=== PATIENT | male | born 1940 | race Caucasian/White ===

== ENCOUNTER 2017-05-24 06:25 | Inpatient (IN) | payer OTHER ==
[2017-05-23 13:56] VITALS: BMI 26.9
[2017-05-24] MEDS ORDERED: MIDAZOLAM HCL 2 MG/2 ML SINGLE DOSE VIAL ONE ×2 (08:01)
[2017-05-24] MEDS ORDERED: PROPOFOL 20 ML ONE (08:32)
[2017-05-24] MEDS ORDERED: DESFLURANE GAS 240 ML BOTTLE IH ONE (08:38)
[2017-05-24] MEDS ORDERED: ceFAZolin SODIUM 1 GM VIAL IVPB ONE (08:43)
[2017-05-24] MEDS ORDERED: oxyCODONE HCL 5 MG TABLET PO PRN ×2 (09:27→09:40)
[2017-05-24] MEDS ORDERED: PROMETHAZINE HCL 25 MG/1 ML VIAL IVPUSH PRN (09:40)
[2017-05-24] MEDS ORDERED: ONDANSETRON 4 MG/2 ML VIAL IVPUSH PRN (09:40)
[2017-05-24] MEDS ORDERED: LACTATED RINGERS SOLUTION 1,000 ML IV SCH (09:45)
[2017-05-24] MEDS: CEFAZOLIN 1 GM in DEXTROSE 5%-WATER - 50 ML IVPB SCH ×2 (10:00→17:04)
[2017-05-24] MEDS ORDERED: ACETAMINOPHEN INJECTION 100 ML IVPB ONE (10:13)
[2017-05-24] MEDS: ACETAMINOPHEN 1000 MG/100 ML VIAL (NON FORMULARY) IVPB ONE ×2 (10:19→17:48)
[2017-05-24 10:44] LABS: BASO % 0.5 % (0-2.0); EOS % 12.9 % (0-4.5); HEMATOCRIT 40.2 % (35.4-49); HEMOGLOBIN 13.2 GM/dL (11.7-16.9); LYMPH % 35.9 % (8-40); MCH 29.7 pg (25.7-33.7); MCHC 32.9 g/dl (32.0-35.9); MEAN CELL VOLUME 90.3 fl (80-96); MEAN PLT VOLUME 8.4 fl (7.5-11.1); NEUT % 43.7 % (42.8-82.8); PLATELET COUNT 204 K/MM3 (134-434); RBC 4.45 M/mm3 (4.00-5.60); RDW 15.8 % (11.9-15.9); WHITE BLOOD COUNT 7.3 K/mm3 (4.0-10.0)
[2017-05-24 11:06] LABS: ANION GAP 5 (8-16); BLOOD UREA NITROGEN 20 mg/dL (7-18); CALCIUM 8.5 mg/dL (8.5-10.1); CHLORIDE 110 mmol/L (98-107); CO2 28 mmol/L (21-32); CREATININE 0.9 mg/dL (0.7-1.3); GLUCOSE,RANDOM 89 mg/dL (74-106); POTASSIUM 4.3 mmol/L (3.5-5.1); SODIUM 143 mmol/L (136-145)
[2017-05-24] MEDS: MORPHINE SULFATE 10 MG/1 ML *VIAL ONE ×2 (12:30→12:35)
[2017-05-24] MEDS ORDERED: ceFAZolin SODIUM 1 GM VIAL ONE (17:05)
[2017-05-24] MEDS: DEXTROSE 5%-0.45% SALINE 1,000 ML IV SCH (17:16)
[2017-05-25] MEDS: CEFAZOLIN 1 GM in DEXTROSE 5%-WATER - 50 ML IVPB SCH ×3 (01:43→17:59)
[2017-05-25] MEDS: DEXTROSE 5%-0.45% SALINE 1,000 ML IV SCH ×2 (02:05→23:30)
[2017-05-25 08:05] LABS: BASO % 0.5 % (0-2.0); EOS % 9.5 % (0-4.5); HEMATOCRIT 28.7 % (35.4-49); HEMOGLOBIN 9.7 GM/dL (11.7-16.9); LYMPH % 16.9 % (8-40); MCH 30.2 pg (25.7-33.7); MCHC 33.7 g/dl (32.0-35.9); MEAN CELL VOLUME 89.7 fl (80-96); MEAN PLT VOLUME 8.5 fl (7.5-11.1); MONO % 6.8 % (3.8-10.2); NEUT % 66.3 % (42.8-82.8); PLATELET COUNT 170 K/MM3 (134-434); RDW 15.8 % (11.9-15.9); WHITE BLOOD COUNT 9.5 K/mm3 (4.0-10.0)
[2017-05-25 08:29] LABS: ANION GAP 5 (8-16); BLOOD UREA NITROGEN 13 mg/dL (7-18); CALCIUM 7.6 mg/dL (8.5-10.1); CHLORIDE 107 mmol/L (98-107); CO2 29 mmol/L (21-32); CREATININE 0.8 mg/dL (0.7-1.3); GLUCOSE,RANDOM 100 mg/dL (74-106); POTASSIUM 4.2 mmol/L (3.5-5.1); SODIUM 141 mmol/L (136-145)
[2017-05-25] MEDS ORDERED: PT OWN MED DRAWER 7, Y5N ONE ×2 (09:58→17:52)
--- NOTE | 2017-05-25 10:45 | PN ---
Progress Note (short form) - Note Progress Note: s/p TURP yesterday urine pink on CBI clot retention overnight cont CBI
[2017-05-26] MEDS: CEFAZOLIN 1 GM in DEXTROSE 5%-WATER - 50 ML IVPB SCH ×3 (01:23→17:32)
[2017-05-26] MEDS: DEXTROSE 5%-0.45% SALINE 1,000 ML IV SCH (06:36)
[2017-05-26] MEDS ORDERED: PT OWN MED DRAWER 7, Y5N ONE ×3 (09:37→17:26)
[2017-05-26] MEDS ORDERED: SIMETHICONE 40 MG/0.6 ML BOTTLE PO PRN (15:42)
--- NOTE | 2017-05-26 15:42 | PN ---
Progress Note (short form) - Note Progress Note: urine light pink on CBI ABD soft stop CBI
[2017-05-26] MEDS ORDERED: SIMETHICONE 80 MG TAB.CHEW (FP) PO PRN (16:39)
[2017-05-27] MEDS: DEXTROSE 5%-0.45% SALINE 1,000 ML IV SCH ×3 (00:30→10:36)
[2017-05-27] MEDS ORDERED: PT OWN MED DRAWER 7, Y5N ONE ×2 (00:54→01:07)
[2017-05-27] MEDS: CEFAZOLIN 1 GM in DEXTROSE 5%-WATER - 50 ML IVPB SCH (01:01)
--- NOTE | 2017-05-27 10:00 | PN ---
Progress Note (short form) - Note Progress Note: urine is clear today after CBI is off discharge home with alejo to leg bag
--- NOTE | 2017-05-27 12:07 | PATH ---
Surgical Pathology Report Patient Name: LINDSEY BARTLETT Med. Rec. #: [id number] /Age/Gender: 1940 (Age: 77) / M Account: [id number] Location: [facility] MED/SURG Taken: 05/24/2017 Received: 05/24/2017 Reported: 05/27/2017 Physicians: Fernando Oliveira M.D. Specimen(s) Received PROSTATE CHIPS Clinical History BPH Final Diagnosis PROSTATE, TUR: BENIGN PROSTATIC HYPERPLASIA WITH ATROPHY. Electronically Signed Judah Combs M.D. Gross Description Received in formalin labelled "prostate chips" is an 11 gram, 4 x 4 x 2 cm aggregate of rubbery pink and anna tissue fragments. No yellow or indurated areas are identified. Totally submitted in 10 cassettes [facility]/05/24/2017 [facility]/05/24/2017
[2017-05-27 16:08] VITALS: BP 110/62; PULSE 61; TEMP 97.1
--- NOTE | 2017-06-25 13:59 | OP ---
DATE OF OPERATION: 05/24/2017 PREOPERATIVE DIAGNOSIS: Benign prostatic hypertrophy with urinary retention. POSTOPERATIVE DIAGNOSIS: Benign prostatic hypertrophy with urinary retention. PROCEDURE: Cystoscopy and bipolar transurethral resection of the prostate. SURGEON: Fernando Oliveira MD DRAINS: A Ly catheter. ESTIMATED BLOOD LOSS: Minimal. PREOPERATIVE INDICATIONS: The patient is a 77-year-old male who is in urinary retention having failed medical therapy. He comes to the OR for a bipolar resection. THE OPERATION: The patient was brought to the OR, placed on the table in the supine position, given general anesthesia and IV antibiotics and placed in a modified lithotomy position. The groin was prepped and draped sterilely. Cystoscopy was performed. The distal urethra appeared to be normal. The sphincter was intact and visualized. Using the bipolar resectoscope, the obstructive prostate tissue was vaporized until there was an open fossa. The bladder itself had trabeculations throughout. No tumors or stones were seen. Both UOs were identified. At the end of the resection, the UOs were not injured, nor was the sphincter injured. The scope was removed. The 3-way Ly catheter was placed for postoperative. Patient was woken up. FERNANDO OLIVEIRA M.D. [id number]
== END 2017-05-27 11:55 | disposition home or self-care (01) | DRG 714 ==
LOC: JASUSAT 06:25 → JASU-SURG 06:25 → J8W 17:30 → JASUSAT 17:37 → J8W 17:37
PROVIDERS: ADMIT Urology; ATTEND Urology
PROC: 0VT08ZZ Resection of Prostate, Via Natural or Artificial Opening Endoscopic (ICD-10-PCS; principal; 2017-05-24 08:00)
DX: N40.0 Benign prostatic hyperplasia without lower urinary tract symptoms (principal)
CPT/HCPCS: 36415; 80048; 85025; 86850; 86900; 86901; 88305-TC; 94760; J0131